=== PATIENT | male | born 1960 | race African-American/Black ===

== ENCOUNTER 2021-03-18 12:58 | Inpatient (IN) | payer OTHER ==
[2021-03-18 14:46] VITALS: BMI 29.8
[2021-03-18] MEDS ORDERED: MAGNESIUM CITRATE 300 ML BOTTLE PO PRN (19:38)
[2021-03-18] MEDS ORDERED: ONDANSETRON *ODT* 4 MG TABLET SL PRN (19:38)
[2021-03-18] MEDS ORDERED: BISMUTH SUBSALICYLATE 524 MG/30 ML PO PRN (19:38)
[2021-03-18] MEDS ORDERED: MAG HYDROX/AL HYDROX/SIMETH 30 ML UNIT-DOSE CUP PO PRN (19:38)
[2021-03-18] MEDS ORDERED: ACETAMINOPHEN 325 MG TABLET (FP) PO PRN ×2 (19:38)
[2021-03-18] MEDS ORDERED: METHOCARBAMOL 500 MG TABLET PO PRN (19:38)
[2021-03-18] MEDS ORDERED: MENTHOL/PHENOL 1 EACH UD MM PRN (19:38)
[2021-03-18] MEDS ORDERED: MAGNESIUM HYDROX 2400MG/30ML ORAL SUSPENSION 30 ML CUP PO PRN (19:38)
[2021-03-18] MEDS ORDERED: diazePAM 2 MG TABLET PO PRN (19:41)
[2021-03-19] MEDS ORDERED: hydrOXYzine PAMOATE 25 MG CAPSULE (FP) PO ONE ×2 (00:27→05:59)
[2021-03-19] MEDS: MELATONIN 5 MG TABLETS PO SCH ×2 (00:33→23:45)
[2021-03-19] MEDS: PRENATAL VITAMINS W/ FOLIC ACID TABLET (FP) PO SCH ×2 (00:33→10:42)
[2021-03-19] MEDS: hydrOXYzine PAMOATE 25 MG CAPSULE (FP) PO SCH ×3 (00:33→10:47)
[2021-03-19] MEDS: THIAMINE HCL 100 MG TABLET (FP) PO SCH ×2 (00:33→23:46)
[2021-03-19] MEDS ORDERED: methaDONE HCL 10 MG TABLET PO ONE (08:11)
[2021-03-19] MEDS ORDERED: diazePAM 5 MG TABLET PO PRN (09:01)
[2021-03-19] MEDS ORDERED: PNEUMOC 13-VAL CONJ-DIP CRM/PF 0.5 ML DISP.SYRIN IM ONE (10:00)
[2021-03-19 10:09] LABS: HEMATOCRIT 36.8 % (35.4-49); HEMOGLOBIN 12.5 GM/dL (11.7-16.9); MEAN CELL VOLUME 93.9 fl (80-96); MEAN PLT VOLUME 8.4 fl (7.5-11.1); PLATELET COUNT 231 10^3/uL (134-434); RBC 3.92 M/mm3 (4.00-5.60); RDW 15.4 % (11.9-15.9); WHITE BLOOD COUNT 7.7 K/mm3 (4.0-10.0)
[2021-03-19] MEDS ORDERED: methaDONE HCL 10 MG TABLET ONE (10:10)
[2021-03-19] MEDS ORDERED: methaDONE HCL 40 MG DISPERSABLE TABLET ONE (10:10)
[2021-03-19 10:20] LABS: BLOOD UREA NITROGEN 14.8 mg/dL (7-18); CALCIUM 8.3 mg/dL (8.5-10.1)
[2021-03-19 10:21] LABS: ALBUMIN 3.2 g/dl (3.4-5.0)
[2021-03-19 10:24] LABS: CREATININE 1.1 mg/dL (0.55-1.3)
[2021-03-19 10:25] LABS: BILIRUBIN,TOTAL 0.6 mg/dL (0.2-1); TOT PROT 6.5 g/dl (6.4-8.2)
[2021-03-19] MEDS: diazePAM 5 MG TABLET PO SCH ×3 (10:43→23:46)
[2021-03-19] MEDS ORDERED: hydrOXYzine PAMOATE 25 MG CAPSULE (FP) PO PRN (11:36)
[2021-03-19 11:49] LABS: HIV INTERPRETATION NEGATIVE (NEGATIVE)
[2021-03-19] MEDS ORDERED: PNEUMOCOCCAL 23 VACCINE 0.5 ML VIAL IM ONE (12:00)
[2021-03-19] MEDS: NICOTINE 10 MG CARTRIDGE (INHALER) IH PRN (13:16)
[2021-03-19] MEDS: IBUPROFEN 400 MG TABLET (FP) PO PRN (17:36)
[2021-03-20] MEDS ORDERED: methaDONE HCL 40 MG DISPERSABLE TABLET ONE (04:35)
[2021-03-20] MEDS ORDERED: methaDONE HCL 10 MG TABLET ONE (04:35)
[2021-03-20] MEDS ORDERED: methaDONE HCL 10 MG TABLET PO SCH (06:00)
[2021-03-20] MEDS: diazePAM 5 MG TABLET PO SCH ×4 (06:06→22:24)
[2021-03-20] MEDS: PRENATAL VITAMINS W/ FOLIC ACID TABLET (FP) PO SCH (10:43)
[2021-03-20] MEDS: THIAMINE HCL 100 MG TABLET (FP) PO SCH (22:24)
[2021-03-20] MEDS: MELATONIN 5 MG TABLETS PO SCH (22:24)
[2021-03-21] MEDS ORDERED: methaDONE HCL 10 MG TABLET ONE (03:38)
[2021-03-21] MEDS ORDERED: methaDONE HCL 40 MG DISPERSABLE TABLET ONE (03:39)
[2021-03-21] MEDS: diazePAM 5 MG TABLET PO SCH ×3 (06:01→22:35)
[2021-03-21] MEDS: PRENATAL VITAMINS W/ FOLIC ACID TABLET (FP) PO SCH (10:40)
[2021-03-21] MEDS: IBUPROFEN 400 MG TABLET (FP) PO PRN (14:37)
[2021-03-21] MEDS: THIAMINE HCL 100 MG TABLET (FP) PO SCH (22:35)
[2021-03-21] MEDS: MELATONIN 5 MG TABLETS PO SCH (22:35)
[2021-03-21] MEDS: NICOTINE 10 MG CARTRIDGE (INHALER) IH PRN (22:36)
[2021-03-22] MEDS ORDERED: methaDONE HCL 40 MG DISPERSABLE TABLET ONE (03:55)
[2021-03-22] MEDS ORDERED: methaDONE HCL 10 MG TABLET ONE (03:55)
[2021-03-22] MEDS: diazePAM 5 MG TABLET PO SCH ×2 (05:46→17:20)
[2021-03-22] MEDS: NICOTINE 10 MG CARTRIDGE (INHALER) IH PRN ×2 (10:12→22:27)
[2021-03-22] MEDS: PRENATAL VITAMINS W/ FOLIC ACID TABLET (FP) PO SCH (10:12)
[2021-03-22] MEDS: THIAMINE HCL 100 MG TABLET (FP) PO SCH (22:26)
[2021-03-22] MEDS: MELATONIN 5 MG TABLETS PO SCH (22:26)
[2021-03-23] MEDS ORDERED: methaDONE HCL 10 MG TABLET ONE (03:14)
[2021-03-23] MEDS ORDERED: methaDONE HCL 40 MG DISPERSABLE TABLET ONE (03:14)
[2021-03-23] MEDS ORDERED: diazePAM 5 MG TABLET PO ONE (06:00)
[2021-03-23] MEDS: PRENATAL VITAMINS W/ FOLIC ACID TABLET (FP) PO SCH (10:18)
[2021-03-23 14:10] VITALS: BP 117/68; PULSE 52; TEMP 97.3
== END 2021-03-23 14:48 | disposition home or self-care (01) | DRG 773 ==
LOC: YASAS 12:58 → UNDOADMIN 03-19 08:55 → Y3N 03-19 08:55
PROVIDERS: ADMIT Allergy & Immunology; ATTEND Allergy & Immunology
PROC: HZ2ZZZZ Detoxification Services for Substance Abuse Treatment (ICD-10-PCS; principal; 2021-03-19)
DX: F13.230 Sedative, hypnotic or anxiolytic dependence with withdrawal, uncomplicated (principal); F11.20 Opioid dependence, uncomplicated; F12.20 Cannabis dependence, uncomplicated; F17.210 Nicotine dependence, cigarettes, uncomplicated; F19.24 Other psychoactive substance dependence with psychoactive substance-induced mood disorder; F43.10 Post-traumatic stress disorder, unspecified; M17.0 Bilateral primary osteoarthritis of knee; D51.9 Vitamin B12 deficiency anemia, unspecified; Z86.16 Personal history of COVID-19; Z86.73 Personal history of transient ischemic attack (TIA), and cerebral infarction without residual deficits; Z56.0 Unemployment, unspecified
CPT/HCPCS: 36415; 80053; 85027; 86780; 87389; C9803; U0003; U0005

== ENCOUNTER 2021-09-17 14:03 | Inpatient (IN) | payer OTHER ==
[2021-09-17] MEDS ORDERED: diazePAM 5 MG TABLET PO PRN (14:33)
[2021-09-17] MEDS ORDERED: BISMUTH SUBSALICYLATE 262 MG/15 ML BTL PO PRN (14:33)
[2021-09-17] MEDS ORDERED: MAGNESIUM CITRATE 300 ML BOTTLE PO PRN (14:33)
[2021-09-17] MEDS ORDERED: MENTHOL/PHENOL 1 EACH UD MM PRN (14:33)
[2021-09-17] MEDS ORDERED: ACETAMINOPHEN 325 MG TABLET (FP) PO PRN ×2 (14:33)
[2021-09-17] MEDS ORDERED: IBUPROFEN 400 MG TABLET (FP) PO PRN (14:33)
[2021-09-17] MEDS ORDERED: MAGNESIUM HYDROX 2400MG/30ML ORAL SUSPENSION 30 ML CUP PO PRN (14:33)
[2021-09-17] MEDS ORDERED: MAG HYDROX/AL HYDROX/SIMETH 30 ML UNIT-DOSE CUP PO PRN (14:33)
[2021-09-17] MEDS ORDERED: ONDANSETRON *ODT* 4 MG TABLET SL PRN (14:33)
[2021-09-17 14:57] VITALS: BMI 29.4
[2021-09-17 16:48] LABS: HEMATOCRIT 38.6 % (35.4-49); MCH 30.8 pg (25.7-33.7); MCHC 33.6 g/dl (32.0-35.9); MEAN CELL VOLUME 91.4 fl (80-96); MEAN PLT VOLUME 8.3 fl (7.5-11.1); PLATELET COUNT 236 10^3/uL (134-434); RBC 4.22 M/mm3 (4.00-5.60); RDW 14.8 % (11.9-15.9); WHITE BLOOD COUNT 6.5 K/mm3 (4.0-10.0)
[2021-09-17 16:52] LABS: CALCIUM 9.1 mg/dL (8.5-10.1)
[2021-09-17 16:54] LABS: ALBUMIN 3.9 g/dl (3.4-5.0); BLOOD UREA NITROGEN 12.9 mg/dL (7-18)
[2021-09-17 16:58] LABS: BILIRUBIN,TOTAL 0.6 mg/dL (0.2-1); TOT PROT 7.4 g/dl (6.4-8.2)
[2021-09-17] MEDS: NICOTINE 14 MG/24 HOURS TOPICAL PATCH TD SCH (22:42)
[2021-09-17] MEDS: PRENATAL VITAMINS W/ FOLIC ACID TABLET (FP) PO SCH (22:42)
[2021-09-17] MEDS: hydrOXYzine PAMOATE 25 MG CAPSULE (FP) PO SCH ×2 (22:43→22:47)
[2021-09-17] MEDS: METHOCARBAMOL 500 MG TABLET PO PRN (22:47)
[2021-09-17] MEDS: MELATONIN 5 MG TABLETS PO SCH (22:47)
[2021-09-17] MEDS: THIAMINE HCL 100 MG TABLET (FP) PO SCH (22:47)
[2021-09-17] MEDS: diazePAM 5 MG TABLET PO SCH (22:47)
[2021-09-18] MEDS: hydrOXYzine PAMOATE 25 MG CAPSULE (FP) PO SCH ×5 (05:59→22:23)
[2021-09-18] MEDS: diazePAM 5 MG TABLET PO SCH ×4 (05:59→22:23)
[2021-09-18] MEDS ORDERED: methaDONE HCL 40 MG DISPERSABLE TABLET PO SCH (10:00)
[2021-09-18] MEDS ORDERED: methaDONE HCL 10 MG TABLET ONE (10:13)
[2021-09-18] MEDS ORDERED: methaDONE HCL 40 MG DISPERSABLE TABLET ONE (10:13)
[2021-09-18] MEDS: PRENATAL VITAMINS W/ FOLIC ACID TABLET (FP) PO SCH (10:18)
[2021-09-18] MEDS: NICOTINE 10 MG CARTRIDGE (INHALER) IH PRN ×2 (10:18→21:03)
[2021-09-18] MEDS: NICOTINE 14 MG/24 HOURS TOPICAL PATCH TD SCH (10:53)
[2021-09-18] MEDS: THIAMINE HCL 100 MG TABLET (FP) PO SCH (22:23)
[2021-09-18] MEDS: METHOCARBAMOL 500 MG TABLET PO PRN (22:23)
[2021-09-18] MEDS: MELATONIN 5 MG TABLETS PO SCH (22:23)
[2021-09-19] MEDS: diazePAM 5 MG TABLET PO SCH ×3 (06:02→22:38)
[2021-09-19] MEDS: hydrOXYzine PAMOATE 25 MG CAPSULE (FP) PO SCH ×5 (06:02→22:38)
[2021-09-19] MEDS ORDERED: methaDONE HCL 40 MG DISPERSABLE TABLET ONE (09:01)
[2021-09-19] MEDS ORDERED: methaDONE HCL 10 MG TABLET ONE (09:01)
[2021-09-19] MEDS: NICOTINE 10 MG CARTRIDGE (INHALER) IH PRN ×2 (10:28→18:09)
[2021-09-19] MEDS: NICOTINE 14 MG/24 HOURS TOPICAL PATCH TD SCH (10:28)
[2021-09-19] MEDS: PRENATAL VITAMINS W/ FOLIC ACID TABLET (FP) PO SCH (10:28)
[2021-09-19] MEDS: METHOCARBAMOL 500 MG TABLET PO PRN ×2 (14:01→22:38)
[2021-09-19] MEDS: THIAMINE HCL 100 MG TABLET (FP) PO SCH (22:38)
[2021-09-19] MEDS: MELATONIN 5 MG TABLETS PO SCH (22:38)
[2021-09-20] MEDS: hydrOXYzine PAMOATE 25 MG CAPSULE (FP) PO SCH ×5 (05:57→22:19)
[2021-09-20] MEDS: diazePAM 5 MG TABLET PO SCH ×2 (05:58→18:16)
[2021-09-20] MEDS ORDERED: methaDONE HCL 40 MG DISPERSABLE TABLET ONE (08:01)
[2021-09-20] MEDS ORDERED: methaDONE HCL 10 MG TABLET ONE (08:01)
[2021-09-20] MEDS: PRENATAL VITAMINS W/ FOLIC ACID TABLET (FP) PO SCH (10:04)
[2021-09-20] MEDS: NICOTINE 14 MG/24 HOURS TOPICAL PATCH TD SCH (10:04)
[2021-09-20] MEDS: NICOTINE 10 MG CARTRIDGE (INHALER) IH PRN (18:15)
[2021-09-20] MEDS: THIAMINE HCL 100 MG TABLET (FP) PO SCH (22:19)
[2021-09-20] MEDS: MELATONIN 5 MG TABLETS PO SCH (22:19)
[2021-09-21] MEDS ORDERED: diazePAM 5 MG TABLET PO ONE (06:00)
[2021-09-21] MEDS: hydrOXYzine PAMOATE 25 MG CAPSULE (FP) PO SCH ×3 (06:11→14:34)
[2021-09-21] MEDS ORDERED: methaDONE HCL 10 MG TABLET ONE (09:52)
[2021-09-21] MEDS ORDERED: methaDONE HCL 40 MG DISPERSABLE TABLET ONE (09:52)
[2021-09-21] MEDS: NICOTINE 10 MG CARTRIDGE (INHALER) IH PRN (10:23)
[2021-09-21] MEDS: PRENATAL VITAMINS W/ FOLIC ACID TABLET (FP) PO SCH (10:23)
[2021-09-21] MEDS: NICOTINE 14 MG/24 HOURS TOPICAL PATCH TD SCH (10:23)
[2021-09-21 13:01] VITALS: BP 135/68; PULSE 58; TEMP 97.1
== END 2021-09-21 16:08 | disposition other institution (70) | DRG 773 ==
LOC: YASAS 14:03 → Y3N 21:25
PROVIDERS: ADMIT Allergy & Immunology; ATTEND Allergy & Immunology
PROC: HZ2ZZZZ Detoxification Services for Substance Abuse Treatment (ICD-10-PCS; principal; 2021-09-17)
DX: F11.23 Opioid dependence with withdrawal (principal); F13.20 Sedative, hypnotic or anxiolytic dependence, uncomplicated; F12.20 Cannabis dependence, uncomplicated; F17.210 Nicotine dependence, cigarettes, uncomplicated; F19.24 Other psychoactive substance dependence with psychoactive substance-induced mood disorder; F32.A Depression, unspecified; F43.10 Post-traumatic stress disorder, unspecified; M17.0 Bilateral primary osteoarthritis of knee; Z86.73 Personal history of transient ischemic attack (TIA), and cerebral infarction without residual deficits; Z86.16 Personal history of COVID-19; Z56.0 Unemployment, unspecified
CPT/HCPCS: 36415; 80053; 85027; 86780; C9803; U0003; U0005

== ENCOUNTER 2021-09-21 16:46 | Inpatient (IN) | payer OTHER ==
[2021-09-21] MEDS ORDERED: ACETAMINOPHEN 325 MG TABLET (FP) PO PRN (18:52)
[2021-09-21] MEDS ORDERED: MAGNESIUM CITRATE 300 ML BOTTLE PO PRN (18:52)
[2021-09-21] MEDS ORDERED: guaiFENesin 200 MG/10 ML 10 ML UNIT-DOSE CUPS PO PRN (18:52)
[2021-09-21] MEDS ORDERED: LOPERAMIDE HCL 2 MG CAPSULE PO PRN (18:52)
[2021-09-21] MEDS ORDERED: P-EPHED 60MG/TRIPROLIDI 2.5MG TABLET PO PRN (18:52)
[2021-09-21] MEDS ORDERED: MENTHOL/PHENOL 1 EACH UD MM PRN (18:52)
[2021-09-21] MEDS ORDERED: MAG HYDROX/AL HYDROX/SIMETH 30 ML UNIT-DOSE CUP PO PRN (18:52)
[2021-09-21] MEDS: THIAMINE HCL 100 MG TABLET (FP) PO SCH (21:45)
[2021-09-21] MEDS: MELATONIN 5 MG TABLETS PO PRN (21:45)
[2021-09-22] MEDS ORDERED: methaDONE HCL 40 MG DISPERSABLE TABLET ONE (05:25)
[2021-09-22] MEDS ORDERED: methaDONE HCL 10 MG TABLET ONE (05:25)
[2021-09-22] MEDS ORDERED: methaDONE HCL 40 MG DISPERSABLE TABLET PO SCH (06:00)
[2021-09-22] MEDS: PRENATAL VITAMINS W/ FOLIC ACID TABLET (FP) PO SCH (09:48)
[2021-09-22] MEDS: MELATONIN 5 MG TABLETS PO PRN (21:28)
[2021-09-22] MEDS: THIAMINE HCL 100 MG TABLET (FP) PO SCH (21:28)
[2021-09-23] MEDS ORDERED: methaDONE HCL 40 MG DISPERSABLE TABLET ONE (03:16)
[2021-09-23] MEDS ORDERED: methaDONE HCL 10 MG TABLET ONE (03:16)
[2021-09-23] MEDS: PRENATAL VITAMINS W/ FOLIC ACID TABLET (FP) PO SCH (10:55)
[2021-09-23] MEDS: MAGNESIUM HYDROX 2400MG/30ML ORAL SUSPENSION 30 ML CUP PO PRN (10:57)
[2021-09-23] MEDS: THIAMINE HCL 100 MG TABLET (FP) PO SCH (21:22)
[2021-09-24] MEDS ORDERED: methaDONE HCL 10 MG TABLET ONE (04:00)
[2021-09-24] MEDS ORDERED: methaDONE HCL 40 MG DISPERSABLE TABLET ONE (04:00)
[2021-09-24] MEDS: PRENATAL VITAMINS W/ FOLIC ACID TABLET (FP) PO SCH (10:59)
[2021-09-24] MEDS: THIAMINE HCL 100 MG TABLET (FP) PO SCH (22:58)
[2021-09-25] MEDS ORDERED: methaDONE HCL 40 MG DISPERSABLE TABLET ONE (04:22)
[2021-09-25] MEDS ORDERED: methaDONE HCL 10 MG TABLET ONE (04:22)
[2021-09-25] MEDS: PRENATAL VITAMINS W/ FOLIC ACID TABLET (FP) PO SCH (10:06)
[2021-09-25] MEDS: THIAMINE HCL 100 MG TABLET (FP) PO SCH (22:37)
[2021-09-26] MEDS ORDERED: methaDONE HCL 10 MG TABLET ONE (03:14)
[2021-09-26] MEDS ORDERED: methaDONE HCL 40 MG DISPERSABLE TABLET ONE (03:14)
[2021-09-26] MEDS: PRENATAL VITAMINS W/ FOLIC ACID TABLET (FP) PO SCH (10:25)
[2021-09-26] MEDS: THIAMINE HCL 100 MG TABLET (FP) PO SCH (21:44)
[2021-09-27] MEDS ORDERED: methaDONE HCL 10 MG TABLET ONE (03:05)
[2021-09-27] MEDS ORDERED: methaDONE HCL 40 MG DISPERSABLE TABLET ONE (03:06)
[2021-09-27] MEDS: PRENATAL VITAMINS W/ FOLIC ACID TABLET (FP) PO SCH (12:29)
[2021-09-27 14:06] LABS: SARS-CoV-2 NAA Not Detected (Not Detected)
[2021-09-27] MEDS: THIAMINE HCL 100 MG TABLET (FP) PO SCH (21:49)
[2021-09-28] MEDS ORDERED: methaDONE HCL 10 MG TABLET ONE (03:12)
[2021-09-28] MEDS ORDERED: methaDONE HCL 40 MG DISPERSABLE TABLET ONE (03:13)
[2021-09-28] MEDS: PRENATAL VITAMINS W/ FOLIC ACID TABLET (FP) PO SCH (09:51)
[2021-09-28] MEDS: NICOTINE 10 MG CARTRIDGE (INHALER) IH PRN (21:59)
[2021-09-28] MEDS: THIAMINE HCL 100 MG TABLET (FP) PO SCH (22:03)
[2021-09-29] MEDS ORDERED: methaDONE HCL 40 MG DISPERSABLE TABLET ONE (05:28)
[2021-09-29] MEDS ORDERED: methaDONE HCL 10 MG TABLET ONE (05:28)
[2021-09-29] MEDS: PRENATAL VITAMINS W/ FOLIC ACID TABLET (FP) PO SCH (10:31)
[2021-09-29] MEDS: THIAMINE HCL 100 MG TABLET (FP) PO SCH (21:38)
[2021-09-30] MEDS ORDERED: methaDONE HCL 10 MG TABLET ONE (05:58)
[2021-09-30] MEDS ORDERED: methaDONE HCL 40 MG DISPERSABLE TABLET ONE (05:59)
[2021-09-30] MEDS: PRENATAL VITAMINS W/ FOLIC ACID TABLET (FP) PO SCH (10:04)
[2021-09-30] MEDS: THIAMINE HCL 100 MG TABLET (FP) PO SCH (21:32)
[2021-10-01] MEDS ORDERED: methaDONE HCL 40 MG DISPERSABLE TABLET ONE (04:58)
[2021-10-01] MEDS ORDERED: methaDONE HCL 10 MG TABLET ONE (04:58)
[2021-10-01] MEDS: PRENATAL VITAMINS W/ FOLIC ACID TABLET (FP) PO SCH (09:48)
[2021-10-01] MEDS: NICOTINE 10 MG CARTRIDGE (INHALER) IH PRN (09:49)
[2021-10-01] MEDS: MAGNESIUM HYDROX 2400MG/30ML ORAL SUSPENSION 30 ML CUP PO PRN (09:49)
[2021-10-01] MEDS: THIAMINE HCL 100 MG TABLET (FP) PO SCH (22:12)
[2021-10-02] MEDS ORDERED: methaDONE HCL 40 MG DISPERSABLE TABLET ONE (03:23)
[2021-10-02] MEDS ORDERED: methaDONE HCL 10 MG TABLET ONE (03:23)
[2021-10-02] MEDS: PRENATAL VITAMINS W/ FOLIC ACID TABLET (FP) PO SCH (10:48)
[2021-10-02] MEDS: THIAMINE HCL 100 MG TABLET (FP) PO SCH (22:03)
[2021-10-03] MEDS ORDERED: methaDONE HCL 40 MG DISPERSABLE TABLET ONE (04:19)
[2021-10-03] MEDS ORDERED: methaDONE HCL 10 MG TABLET ONE (04:19)
[2021-10-03] MEDS: PRENATAL VITAMINS W/ FOLIC ACID TABLET (FP) PO SCH (10:14)
[2021-10-03] MEDS: NICOTINE 10 MG CARTRIDGE (INHALER) IH PRN (12:06)
[2021-10-03] MEDS: IBUPROFEN 400 MG TABLET (FP) PO PRN (12:06)
[2021-10-03] MEDS: THIAMINE HCL 100 MG TABLET (FP) PO SCH (21:57)
[2021-10-04] MEDS ORDERED: methaDONE HCL 10 MG TABLET ONE (03:11)
[2021-10-04] MEDS ORDERED: methaDONE HCL 40 MG DISPERSABLE TABLET ONE (03:12)
[2021-10-04] MEDS: PRENATAL VITAMINS W/ FOLIC ACID TABLET (FP) PO SCH (12:13)
[2021-10-04] MEDS: MELATONIN 5 MG TABLETS PO PRN (21:37)
[2021-10-04] MEDS: THIAMINE HCL 100 MG TABLET (FP) PO SCH (21:37)
[2021-10-05] MEDS ORDERED: methaDONE HCL 10 MG TABLET ONE (03:09)
[2021-10-05] MEDS ORDERED: methaDONE HCL 40 MG DISPERSABLE TABLET ONE (03:10)
[2021-10-05] MEDS: PRENATAL VITAMINS W/ FOLIC ACID TABLET (FP) PO SCH (10:34)
[2021-10-05] MEDS: THIAMINE HCL 100 MG TABLET (FP) PO SCH (21:55)
[2021-10-05] MEDS: NICOTINE 10 MG CARTRIDGE (INHALER) IH PRN (22:01)
[2021-10-06] MEDS ORDERED: methaDONE HCL 10 MG TABLET ONE (03:20)
[2021-10-06] MEDS ORDERED: methaDONE HCL 40 MG DISPERSABLE TABLET ONE (03:21)
[2021-10-06] MEDS: PRENATAL VITAMINS W/ FOLIC ACID TABLET (FP) PO SCH (10:39)
[2021-10-06] MEDS: THIAMINE HCL 100 MG TABLET (FP) PO SCH (23:02)
[2021-10-07] MEDS ORDERED: methaDONE HCL 40 MG DISPERSABLE TABLET ONE (03:27)
[2021-10-07] MEDS ORDERED: methaDONE HCL 10 MG TABLET ONE (03:27)
[2021-10-07] MEDS: PRENATAL VITAMINS W/ FOLIC ACID TABLET (FP) PO SCH (11:04)
[2021-10-07] MEDS: THIAMINE HCL 100 MG TABLET (FP) PO SCH (21:28)
[2021-10-08] MEDS ORDERED: methaDONE HCL 40 MG DISPERSABLE TABLET ONE (03:03)
[2021-10-08] MEDS ORDERED: methaDONE HCL 10 MG TABLET ONE (03:03)
[2021-10-08] MEDS: NICOTINE 10 MG CARTRIDGE (INHALER) IH PRN (09:09)
[2021-10-08] MEDS: PRENATAL VITAMINS W/ FOLIC ACID TABLET (FP) PO SCH (10:53)
[2021-10-08] MEDS: THIAMINE HCL 100 MG TABLET (FP) PO SCH (21:35)
[2021-10-09] MEDS ORDERED: methaDONE HCL 10 MG TABLET ONE (03:11)
[2021-10-09] MEDS ORDERED: methaDONE HCL 40 MG DISPERSABLE TABLET ONE (03:11)
[2021-10-09] MEDS: PRENATAL VITAMINS W/ FOLIC ACID TABLET (FP) PO SCH (10:44)
[2021-10-09] MEDS: THIAMINE HCL 100 MG TABLET (FP) PO SCH (21:23)
[2021-10-10] MEDS ORDERED: methaDONE HCL 10 MG TABLET ONE (04:50)
[2021-10-10] MEDS ORDERED: methaDONE HCL 40 MG DISPERSABLE TABLET ONE (04:50)
[2021-10-10] MEDS: PRENATAL VITAMINS W/ FOLIC ACID TABLET (FP) PO SCH (10:44)
[2021-10-10] MEDS: THIAMINE HCL 100 MG TABLET (FP) PO SCH (22:03)
[2021-10-11] MEDS ORDERED: methaDONE HCL 10 MG TABLET ONE (03:29)
[2021-10-11] MEDS ORDERED: methaDONE HCL 40 MG DISPERSABLE TABLET ONE (03:29)
[2021-10-11] MEDS: NICOTINE 10 MG CARTRIDGE (INHALER) IH PRN (06:02)
[2021-10-11] MEDS: PRENATAL VITAMINS W/ FOLIC ACID TABLET (FP) PO SCH (10:12)
[2021-10-11] MEDS: THIAMINE HCL 100 MG TABLET (FP) PO SCH (23:58)
[2021-10-12] MEDS ORDERED: methaDONE HCL 40 MG DISPERSABLE TABLET ONE (05:06)
[2021-10-12] MEDS ORDERED: methaDONE HCL 10 MG TABLET ONE (05:06)
[2021-10-12] MEDS: PRENATAL VITAMINS W/ FOLIC ACID TABLET (FP) PO SCH (11:04)
[2021-10-12] MEDS: MAGNESIUM HYDROX 2400MG/30ML ORAL SUSPENSION 30 ML CUP PO PRN (11:43)
[2021-10-12] MEDS: NICOTINE 10 MG CARTRIDGE (INHALER) IH PRN (11:43)
[2021-10-12] MEDS: THIAMINE HCL 100 MG TABLET (FP) PO SCH (23:04)
[2021-10-13] MEDS ORDERED: methaDONE HCL 10 MG TABLET ONE (03:03)
[2021-10-13] MEDS ORDERED: methaDONE HCL 40 MG DISPERSABLE TABLET ONE (03:04)
[2021-10-13] MEDS: IBUPROFEN 400 MG TABLET (FP) PO PRN (06:07)
[2021-10-13] MEDS: PRENATAL VITAMINS W/ FOLIC ACID TABLET (FP) PO SCH (10:17)
[2021-10-13] MEDS: THIAMINE HCL 100 MG TABLET (FP) PO SCH (22:12)
[2021-10-14] MEDS ORDERED: methaDONE HCL 10 MG TABLET ONE (03:08)
[2021-10-14] MEDS ORDERED: methaDONE HCL 40 MG DISPERSABLE TABLET ONE (03:08)
[2021-10-14] MEDS: NICOTINE 10 MG CARTRIDGE (INHALER) IH PRN (08:35)
[2021-10-14] MEDS: PRENATAL VITAMINS W/ FOLIC ACID TABLET (FP) PO SCH (10:10)
[2021-10-14] MEDS: IBUPROFEN 400 MG TABLET (FP) PO PRN (12:08)
[2021-10-14] MEDS: THIAMINE HCL 100 MG TABLET (FP) PO SCH (21:36)
[2021-10-15] MEDS ORDERED: methaDONE HCL 10 MG TABLET ONE (03:00)
[2021-10-15] MEDS ORDERED: methaDONE HCL 40 MG DISPERSABLE TABLET ONE (03:01)
[2021-10-15] MEDS: NICOTINE 10 MG CARTRIDGE (INHALER) IH PRN (06:34)
[2021-10-15] MEDS: PRENATAL VITAMINS W/ FOLIC ACID TABLET (FP) PO SCH (09:52)
[2021-10-15 14:08] LABS: SARS-CoV-2 NAA Not Detected (Not Detected)
[2021-10-15] MEDS: THIAMINE HCL 100 MG TABLET (FP) PO SCH (22:19)
[2021-10-16] MEDS ORDERED: methaDONE HCL 40 MG DISPERSABLE TABLET ONE (03:06)
[2021-10-16] MEDS ORDERED: methaDONE HCL 10 MG TABLET ONE (03:06)
[2021-10-16] MEDS: PRENATAL VITAMINS W/ FOLIC ACID TABLET (FP) PO SCH (10:51)
[2021-10-16] MEDS: THIAMINE HCL 100 MG TABLET (FP) PO SCH (23:04)
[2021-10-17] MEDS ORDERED: methaDONE HCL 10 MG TABLET ONE (05:40)
[2021-10-17] MEDS ORDERED: methaDONE HCL 40 MG DISPERSABLE TABLET ONE (05:41)
[2021-10-17] MEDS: NICOTINE 10 MG CARTRIDGE (INHALER) IH PRN (10:03)
[2021-10-17] MEDS: PRENATAL VITAMINS W/ FOLIC ACID TABLET (FP) PO SCH (10:03)
[2021-10-17] MEDS: THIAMINE HCL 100 MG TABLET (FP) PO SCH (21:37)
[2021-10-18] MEDS ORDERED: methaDONE HCL 10 MG TABLET ONE (03:51)
[2021-10-18] MEDS ORDERED: methaDONE HCL 40 MG DISPERSABLE TABLET ONE (03:51)
[2021-10-18] MEDS: PRENATAL VITAMINS W/ FOLIC ACID TABLET (FP) PO SCH (10:26)
[2021-10-18] MEDS: THIAMINE HCL 100 MG TABLET (FP) PO SCH (21:45)
[2021-10-19] MEDS ORDERED: methaDONE HCL 10 MG TABLET ONE (04:06)
[2021-10-19] MEDS ORDERED: methaDONE HCL 40 MG DISPERSABLE TABLET ONE (04:07)
[2021-10-19] MEDS ORDERED: methaDONE HCL 10 MG TABLET PO ONE (06:00)
[2021-10-19] MEDS ORDERED: methaDONE HCL 10 MG TABLET PO SCH (06:00)
[2021-10-19 07:21] VITALS: BP 121/71; PULSE 68; TEMP 97.7
[2021-10-19] MEDS: PRENATAL VITAMINS W/ FOLIC ACID TABLET (FP) PO SCH (11:13)
[2021-10-19] MEDS: NICOTINE 10 MG CARTRIDGE (INHALER) IH PRN (11:27)
== END 2021-10-19 14:08 | disposition home or self-care (01) | DRG 772 ==
LOC: YASAS 16:46 → Y3W 16:47
PROVIDERS: ADMIT Allergy & Immunology; ATTEND Allergy & Immunology
PROC: HZ42ZZZ Group Counseling for Substance Abuse Treatment, Cognitive-Behavioral (ICD-10-PCS; principal; 2021-09-21)
DX: F11.20 Opioid dependence, uncomplicated (principal); F10.20 Alcohol dependence, uncomplicated; F13.20 Sedative, hypnotic or anxiolytic dependence, uncomplicated; F32.A Depression, unspecified; F43.10 Post-traumatic stress disorder, unspecified; M19.90 Unspecified osteoarthritis, unspecified site; Z86.73 Personal history of transient ischemic attack (TIA), and cerebral infarction without residual deficits
CPT/HCPCS: 93005; 93010; C9803; U0003; U0005

== ENCOUNTER 2022-02-11 11:38 | Inpatient (IN) | payer OTHER ==
[2022-02-11 12:19] VITALS: BMI 26.3
[2022-02-11] MEDS ORDERED: IBUPROFEN 600 MG TABLET (FP) PO PRN (12:56)
[2022-02-11] MEDS ORDERED: MAGNESIUM CITRATE 300 ML BOTTLE PO PRN (12:56)
[2022-02-11] MEDS ORDERED: ONDANSETRON *ODT* 4 MG TABLET SL PRN (12:56)
[2022-02-11] MEDS ORDERED: LOPERAMIDE HCL 2 MG CAPSULE PO PRN (12:56)
[2022-02-11] MEDS ORDERED: MAGNESIUM HYDROX 2400MG/30ML ORAL SUSPENSION 30 ML CUP PO PRN (12:56)
[2022-02-11] MEDS ORDERED: diazePAM 5 MG TABLET PO PRN (12:56)
[2022-02-11] MEDS ORDERED: METHOCARBAMOL 500 MG TABLET PO PRN (12:56)
[2022-02-11] MEDS ORDERED: BISMUTH SUBSALICYLATE 524 MG/30 ML PO PRN (12:56)
[2022-02-11] MEDS ORDERED: IBUPROFEN 400 MG TABLET (FP) PO PRN (12:56)
[2022-02-11] MEDS ORDERED: MAG HYDROX/AL HYDROX/SIMETH 30 ML UNIT-DOSE CUP PO PRN (12:56)
[2022-02-11] MEDS ORDERED: ACETAMINOPHEN 325 MG TABLET (FP) PO PRN ×2 (12:56)
[2022-02-11] MEDS ORDERED: BENZOCAINE/MENTHOL (CHLORASEPTIC ) LOZENGE MM PRN (12:56)
[2022-02-11] MEDS ORDERED: DICYCLOMINE HCL 10 MG CAPSULE PO PRN (12:56)
[2022-02-11] MEDS ORDERED: diazePAM 5 MG TABLET ONE (13:49)
[2022-02-11] MEDS ORDERED: hydrOXYzine PAMOATE 25 MG CAPSULE (FP) PO ONE (13:49)
[2022-02-11] MEDS: hydrOXYzine PAMOATE 25 MG CAPSULE (FP) PO SCH ×3 (14:14→22:14)
[2022-02-11] MEDS: PRENATAL VITAMINS W/ FOLIC ACID TABLET (FP) PO SCH (14:16)
[2022-02-11 17:10] LABS: HEMATOCRIT 37.5 % (35.4-49); HEMOGLOBIN 12.3 GM/dL (11.7-16.9); MCH 30.3 pg (25.7-33.7); MCHC 32.8 g/dl (32.0-35.9); MEAN CELL VOLUME 92.4 fl (80-96); MEAN PLT VOLUME 8.8 fl (7.5-11.1); PLATELET COUNT 264 10^3/uL (134-434); RBC 4.05 M/mm3 (4.00-5.60); WHITE BLOOD COUNT 6.6 K/mm3 (4.0-10.0)
[2022-02-11 17:13] LABS: ALBUMIN 3.9 g/dl (3.4-5.0); BLOOD UREA NITROGEN 20.7 mg/dL (7-18); CALCIUM 8.9 mg/dL (8.5-10.1)
[2022-02-11 17:16] LABS: CREATININE 1.1 mg/dL (0.55-1.3)
[2022-02-11 17:17] LABS: TOT PROT 7.3 g/dl (6.4-8.2)
[2022-02-11] MEDS: diazePAM 5 MG TABLET PO SCH ×2 (17:43→22:14)
[2022-02-11] MEDS: APIXABAN 5 MG TABLET PO SCH (22:14)
[2022-02-11] MEDS: MELATONIN 5 MG TABLETS PO SCH (22:14)
[2022-02-11] MEDS: THIAMINE HCL 100 MG TABLET (FP) PO SCH (22:14)
[2022-02-12] MEDS: diazePAM 5 MG TABLET PO SCH ×4 (05:16→22:14)
[2022-02-12] MEDS: hydrOXYzine PAMOATE 25 MG CAPSULE (FP) PO SCH ×5 (05:16→22:14)
[2022-02-12] MEDS ORDERED: methaDONE HCL 10 MG TABLET PO SCH (08:45)
[2022-02-12] MEDS ORDERED: methaDONE HCL 40 MG DISPERSABLE TABLET ONE (09:23)
[2022-02-12] MEDS ORDERED: methaDONE HCL 10 MG TABLET ONE (09:23)
[2022-02-12] MEDS: PRENATAL VITAMINS W/ FOLIC ACID TABLET (FP) PO SCH (10:17)
[2022-02-12] MEDS: APIXABAN 5 MG TABLET PO SCH ×2 (10:17→17:44)
[2022-02-12] MEDS: MELATONIN 5 MG TABLETS PO SCH (22:14)
[2022-02-12] MEDS: THIAMINE HCL 100 MG TABLET (FP) PO SCH (22:14)
[2022-02-13] MEDS ORDERED: methaDONE HCL 40 MG DISPERSABLE TABLET ONE (04:45)
[2022-02-13] MEDS ORDERED: methaDONE HCL 10 MG TABLET ONE (04:45)
[2022-02-13] MEDS: hydrOXYzine PAMOATE 25 MG CAPSULE (FP) PO SCH ×5 (05:32→22:59)
[2022-02-13] MEDS: APIXABAN 5 MG TABLET PO SCH ×2 (05:32→17:25)
[2022-02-13] MEDS: diazePAM 5 MG TABLET PO SCH ×3 (05:37→22:59)
[2022-02-13] MEDS: PRENATAL VITAMINS W/ FOLIC ACID TABLET (FP) PO SCH (11:07)
[2022-02-13] MEDS: THIAMINE HCL 100 MG TABLET (FP) PO SCH (22:59)
[2022-02-13] MEDS: MELATONIN 5 MG TABLETS PO SCH (22:59)
[2022-02-14] MEDS ORDERED: methaDONE HCL 40 MG DISPERSABLE TABLET ONE (04:28)
[2022-02-14] MEDS ORDERED: methaDONE HCL 10 MG TABLET ONE (04:28)
[2022-02-14] MEDS: APIXABAN 5 MG TABLET PO SCH ×2 (05:10→17:46)
[2022-02-14] MEDS: diazePAM 5 MG TABLET PO SCH ×2 (05:10→17:47)
[2022-02-14] MEDS: hydrOXYzine PAMOATE 25 MG CAPSULE (FP) PO SCH ×5 (05:11→22:27)
[2022-02-14] MEDS: PRENATAL VITAMINS W/ FOLIC ACID TABLET (FP) PO SCH (10:31)
[2022-02-14] MEDS: MELATONIN 5 MG TABLETS PO SCH (22:27)
[2022-02-14] MEDS: THIAMINE HCL 100 MG TABLET (FP) PO SCH (22:27)
[2022-02-15] MEDS ORDERED: methaDONE HCL 40 MG DISPERSABLE TABLET ONE (04:24)
[2022-02-15] MEDS ORDERED: methaDONE HCL 10 MG TABLET ONE (04:24)
[2022-02-15] MEDS: APIXABAN 5 MG TABLET PO SCH ×2 (05:14→17:32)
[2022-02-15] MEDS: hydrOXYzine PAMOATE 25 MG CAPSULE (FP) PO SCH ×5 (05:15→22:14)
[2022-02-15] MEDS ORDERED: diazePAM 5 MG TABLET PO ONE (06:00)
[2022-02-15] MEDS: PRENATAL VITAMINS W/ FOLIC ACID TABLET (FP) PO SCH (10:13)
[2022-02-15] MEDS: THIAMINE HCL 100 MG TABLET (FP) PO SCH (22:14)
[2022-02-15] MEDS: MELATONIN 5 MG TABLETS PO SCH (22:14)
[2022-02-16] MEDS ORDERED: methaDONE HCL 40 MG DISPERSABLE TABLET ONE (04:15)
[2022-02-16] MEDS ORDERED: methaDONE HCL 10 MG TABLET ONE (04:15)
[2022-02-16] MEDS: hydrOXYzine PAMOATE 25 MG CAPSULE (FP) PO SCH ×2 (05:05→10:11)
[2022-02-16] MEDS: APIXABAN 5 MG TABLET PO SCH (05:05)
[2022-02-16] MEDS: PRENATAL VITAMINS W/ FOLIC ACID TABLET (FP) PO SCH (10:11)
[2022-02-16 13:29] VITALS: BP 132/79; PULSE 85; TEMP 97.5
== END 2022-02-16 13:07 | disposition other institution (70) | DRG 773 ==
LOC: YASAS 11:38 → Y3N 13:35
PROVIDERS: ADMIT Allergy & Immunology; ATTEND Surgery
PROC: HZ2ZZZZ Detoxification Services for Substance Abuse Treatment (ICD-10-PCS; principal; 2022-02-11)
DX: F13.230 Sedative, hypnotic or anxiolytic dependence with withdrawal, uncomplicated (principal); F11.20 Opioid dependence, uncomplicated; F17.210 Nicotine dependence, cigarettes, uncomplicated; F19.24 Other psychoactive substance dependence with psychoactive substance-induced mood disorder; F43.10 Post-traumatic stress disorder, unspecified; M17.0 Bilateral primary osteoarthritis of knee; Z86.73 Personal history of transient ischemic attack (TIA), and cerebral infarction without residual deficits; Z86.16 Personal history of COVID-19; Z28.310 Unvaccinated for COVID-19
CPT/HCPCS: 36415; 80053; 82947; 84520; 85027; 86780; 87811; C9803-CS; U0003; U0005

== ENCOUNTER 2025-01-03 10:03 | Inpatient (IN) | payer OTHER ==
[2025-01-03 10:59] VITALS: BMI 26.6
[2025-01-03] MEDS ORDERED: ONDANSETRON *ODT* 4 MG TABLET SL PRN (12:42)
[2025-01-03] MEDS ORDERED: BISMUTH SUBSALICYLATE 262 MG/15 ML BTL PO PRN (12:42)
[2025-01-03] MEDS ORDERED: BENZONATATE 200 MG CAPSULE PO PRN (12:42)
[2025-01-03] MEDS ORDERED: POLYETHYLENE GLYCOL (HEALTHYLAX) 3350 17 GM PACKET PO PRN (12:42)
[2025-01-03] MEDS ORDERED: LOPERAMIDE HCL 2 MG CAPSULE PO PRN (12:42)
[2025-01-03] MEDS ORDERED: guaiFENesin 600 MG TABLET.ER (FP) PO PRN (12:42)
[2025-01-03] MEDS ORDERED: IBUPROFEN 400 MG TABLET (FP) PO PRN (12:42)
[2025-01-03] MEDS ORDERED: NALOXONE (NARCAN) HCL 4 MG/0.1 ML SPRAY NS PRN (12:42)
[2025-01-03] MEDS ORDERED: IBUPROFEN 600 MG TABLET (FP) PO PRN (12:42)
[2025-01-03] MEDS ORDERED: ACETAMINOPHEN 325 MG TABLET (FP) PO PRN (12:42)
[2025-01-03] MEDS ORDERED: BENZOCAINE/MENTHOL (CHLORASEPTIC ) LOZENGE MM PRN (12:42)
[2025-01-03] MEDS ORDERED: DICYCLOMINE HCL 10 MG CAPSULE PO PRN (12:42)
[2025-01-03] MEDS ORDERED: MAG HYDROX/AL HYDROX/SIMETH 30 ML UNIT-DOSE CUP PO PRN (12:42)
[2025-01-03] MEDS: diazePAM 5 MG TABLET PO SCH (17:13)
[2025-01-03] MEDS: ROSUVASTATIN CA 5 MG TABLET PO SCH (22:21)
[2025-01-03] MEDS: APIXABAN 5 MG TABLET PO SCH (22:21)
[2025-01-03] MEDS: MELATONIN 5 MG TABLETS PO SCH (22:21)
[2025-01-03] MEDS: THIAMINE 100 MG TABLET PO SCH (22:21)
[2025-01-04] MEDS ORDERED: methaDONE HCL 40 MG DISPERSABLE TABLET PO SCH (06:45)
[2025-01-04] MEDS: PRENATAL VITAMINS W/ FOLIC ACID TABLET (FP) PO SCH (10:17)
[2025-01-04 12:01] LABS: HEMATOCRIT 38.2 % (40.1-51.0); HEMOGLOBIN 11.9 g/dL (13.7-17.5); MCHC 31.2 g/dl (32.3-36.5); MEAN CELL VOLUME 96.7 fl (79.0-92.2); MEAN PLT VOLUME 11.2 fl (9.4-12.4); PLATELET COUNT 216 x10^3/uL (163-337); RDW 14.6 % (12.2-16.4)
[2025-01-04 13:01] LABS: POTASSIUM 4.4 mmol/L (3.5-5.1)
[2025-01-04 13:11] LABS: CALCIUM 9.3 mg/dL (8.5-10.1)
[2025-01-04 13:12] LABS: ALBUMIN 3.6 g/dl (3.4-5.0)
[2025-01-04 13:15] LABS: CREATININE 1.1 mg/dL (0.55-1.3)
[2025-01-04 13:17] LABS: BILIRUBIN,TOTAL 0.3 mg/dL (0.2-1); TOT PROT 6.4 g/dl (6.4-8.2)
[2025-01-04] MEDS: diazePAM 5 MG TABLET PO PRN (14:28)
[2025-01-05] MEDS: diazePAM 5 MG TABLET PO SCH (05:59)
[2025-01-05] MEDS: METHOCARBAMOL 500 MG TABLET PO PRN (22:13)
[2025-01-06] MEDS: diazePAM 5 MG TABLET PO SCH (06:04)
[2025-01-06] MEDS: hydrOXYzine PAMOATE 25 MG CAPSULE (FP) PO PRN (22:13)
[2025-01-07] MEDS: diazePAM 5 MG TABLET PO ONE (05:41)
[2025-01-07] MEDS: MAGNESIUM HYDROX 2400MG/30ML ORAL SUSPENSION 30 ML CUP PO PRN (05:43)
[2025-01-07 08:36] VITALS: BP 104/66; PULSE 60; RESP 16; TEMP 98
== END 2025-01-07 11:06 | disposition home or self-care (01) | DRG 773 ==
LOC: YASAS 10:03 → Y6N 13:50
PROVIDERS: ADMIT Allergy & Immunology; ATTEND Allergy & Immunology
PROC: HZ2ZZZZ Detoxification Services for Substance Abuse Treatment (ICD-10-PCS; principal; 2025-01-03)
DX: F13.230 Sedative, hypnotic or anxiolytic dependence with withdrawal, uncomplicated (principal); F11.20 Opioid dependence, uncomplicated; F17.210 Nicotine dependence, cigarettes, uncomplicated; F19.282 Other psychoactive substance dependence with psychoactive substance-induced sleep disorder; F19.280 Other psychoactive substance dependence with psychoactive substance-induced anxiety disorder; F41.9 Anxiety disorder, unspecified; E78.5 Hyperlipidemia, unspecified; F43.10 Post-traumatic stress disorder, unspecified; G47.33 Obstructive sleep apnea (adult) (pediatric); M17.0 Bilateral primary osteoarthritis of knee; Z86.711 Personal history of pulmonary embolism; Z79.01 Long term (current) use of anticoagulants; Z62.810 Personal history of physical and sexual abuse in childhood; Z86.73 Personal history of transient ischemic attack (TIA), and cerebral infarction without residual deficits; Z86.11 Personal history of tuberculosis; Z95.0 Presence of cardiac pacemaker
CPT/HCPCS: 36415; 80053; 80305; 80307; 85027; 86780; 93005; 93010